=== PATIENT | female | born 1955 | race Caucasian/White ===

== ENCOUNTER 2025-06-16 11:36 | Emergency (ER) | payer MEDICARE, MEDICAID ==
[~2025-06-16] VITALS: Ht 160 cm; Wt 77.0 kg
[2025-06-16 11:42] VITALS: TEMP 98.1; O2SAT 98
[2025-06-16] MEDS: ACETAMINOPHEN 500MG TABLET PO ONE (12:30)
[2025-06-16] MEDS: TETANUS, DIPHTHERIA, PERTUSSIS VAC/PF 0.5ML (>10YR OLD) IM ONE (12:30)
[2025-06-16] MEDS ORDERED: TOPUD MT (13:42)
[2025-06-16 14:12] VITALS: BP 130/51; PULSE 60; RESP 16; O2SAT 100
== END 2025-06-16 14:15 | disposition home or self-care (01) ==
LOC: ER 11:36
DX: S09.90XA Unspecified injury of head, initial encounter (principal); M25.562 Pain in left knee; I10 Essential (primary) hypertension; E11.9 Type 2 diabetes mellitus without complications; E78.00 Pure hypercholesterolemia, unspecified; Z96.652 Presence of left artificial knee joint; Z79.899 Other long term (current) drug therapy; W19.XXXA Unspecified fall, initial encounter; Y93.89 Activity, other specified; Y92.89 Other specified places as the place of occurrence of the external cause; Y99.8 Other external cause status
CPT/HCPCS: 70486; 73560; 90471; 90715; 99285